=== PATIENT | female | born 1990 | race African-American/Black ===

== ENCOUNTER 2020-11-26 19:20 | Inpatient (IN) | payer SELFPAY ==
[~2020-11-26] VITALS: Ht 167.6 cm; Wt 81.0 kg
[2020-11-26] MEDS ORDERED: HYDROcodone/APAP 5/325MG 1 TAB TABLET PO ONE (22:15)
[2020-11-26 22:29] LABS: BILIRUBIN,URINE SMALL (NEG); CLARITY,URINE CLEAR; COLOR,URINE YELLOW; NITRITE,URINE NEGATIVE (NEG); PROTEIN,URINE NEGATIVE (NEG-TRACE); UROBILINOGEN,URINE 0.2 mg/dL (0.2 mg/dL)
[2020-11-26 22:36] LABS: BACTERIA,URINE FEW /HPF (0-FEW); RBC,URINE >40 /HPF (0-2)
--- NOTE | 2020-11-26 22:47 | RAD ---
EXAMINATION: RIGHT LOWER EXTREMITY - UNILATERAL VENOUS DOPPLER. Technique: Ultrasound evaluation of the right lower extremity was performed from the groin to the upp er calf with peña scale, spectral and color doppler evaluation. Indication: Leg swelling Comparison: None Findings: There is normal venous flow and compressibility of right common femoral vein, femoral vein, popliteal vein, and visualized proximal calf veins. Impression: No evidence for deep vein thrombosis of right lower extremity from the level of the calf veins to the groins. Electronically signed by: Berhane Harris MD (11/26/2020 10:45 PM) DELORIS
--- NOTE | 2020-11-26 23:20 | RAD ---
Examination: 4 views of the right knee HISTORY: History of pain, swelling COMPARISON: None available FINDINGS: The alignment of the knee joint grossly appears unremarkable. No acute fracture or dislocation identi fied IMPRESSION: No acute osseous findings. Electronically signed by: Los Daniel MD (11/26/2020 11:17 PM) [id number]
[2020-11-27] MEDS ORDERED: fentaNYL PF VIAL 100 MCG/2 ML VIAL ONE (00:43)
[2020-11-27] MEDS ORDERED: fentaNYL PF VIAL 100 MCG/2 ML VIAL IVP ONE ×2 (00:45→01:30)
[2020-11-27 00:51] LABS: BASO % 0 % (0-3); EOS # 0.3 x10^3/uL (0.0-0.7); EOS % 3 % (0-3); HEMATOCRIT 33.3 % (36.0-47.0); HEMOGLOBIN 10.6 g/dL (12.0-15.5); LYMPH % 27 % (24-48); MEAN CORPUSCULAR HEMOGLOBIN 28 pg (25-35); MEAN CORPUSCULAR HGB CONC 32 g/dL (31-37); MEAN CORPUSCULAR VOLUME 87 fL (79-100); MONO # 0.9 x10^3/uL (0.0-1.1); MONO % 8 % (0-9); NEUT # 6.9 x10^3/uL (1.8-7.7); NEUT % 62 % (31-73); PLATELET COUNT 379 x10^3/uL (140-400); RED BLOOD COUNT 3.85 x10^6/uL (3.50-5.40); RED CELL DISTRIBUTION WIDTH 14.4 % (11.5-14.5); WHITE BLOOD COUNT 11.1 x10^3/uL (4.0-11.0)
[2020-11-27 01:15] LABS: ALBUMIN 3.4 g/dL (3.4-5.0); CALCIUM 8.4 mg/dL (8.5-10.1); CREATININE 0.8 mg/dL (0.6-1.0); GFR 102.6; TOTAL BILIRUBIN 0.6 mg/dL (0.2-1.0); TOTAL PROTEIN 6.8 g/dL (6.4-8.2)
[2020-11-27] MEDS ORDERED: LIDOCAINE 2%/EPI 1:100,000 20 ML VIAL. INJ ONE (01:30)
[2020-11-27 01:49] LABS: POTASSIUM 2.6 mmol/L (3.5-5.1)
[2020-11-27] MEDS ORDERED: ONDANSETRON PF 4 MG/2 ML VIAL. IV PRN (02:00)
[2020-11-27] MEDS ORDERED: cefTRIAXone IV Push 1 GM VIAL. IVP ONE (02:00)
[2020-11-27] MEDS ORDERED: MORPHINE SULFATE 4 MG/ML INJ. IV PRN (02:00)
[2020-11-27] MEDS ORDERED: HYDROmorphone 2 MG/ML VIAL IVP ONE (02:00)
[2020-11-27] MEDS ORDERED: POTASSIUM CHLORIDE 20 MEQ TABLET.ER. PO ONE (02:00)
--- NOTE | 2020-11-27 02:26 | ED.ADGEN ---
Past Medical History Additional Past Medical Histor: ectopic preg x 2 Past Surgical History: Oophorectomy General Adult EDM: Chief Complaint: LOWER EXT PAIN HPI: HPI: Patient is a 30 year old female coming in for pain and swelling in multiple joints. Patient states that 3 days ago she started having pain and swelling in her right knee, 2 days ago started having pain and swelling in her left knee, and then for 1 day she has had pain and swelling in her left elbow. Denies any fevers or systemic complaints. She denies any injury or twisting to the joints. Says that she has been gradually getting worse. Has noticed right lower extremity edema in her foot and ankle. Denies any past medical history. Denies any personal history of blood clots, states she has a family history of blood clot Review of Systems: Review of Systems: All other systems within normal limits except for as noted in the HPI Current Medications: Current Medications Medications (Trade) Dose Ordered Sig/Danial Start Time Stop Time Status Last Admin Dose Admin Acetaminophen/ Hydrocodone Bitart (Lortab 5/325) 1 tab 1X ONCE 11/26/20 22:15 11/26/20 22:16 DC 11/26/20 23:23 1 TAB Ceftriaxone Sodium (Rocephin) 1 gm 1X ONCE 11/27/20 02:00 11/27/20 02:01 DC 11/27/20 02:08 1 GM Fentanyl Citrate (Fentanyl 2ml Vial) 50 mcg 1X ONCE 11/27/20 01:30 11/27/20 01:31 DC 11/27/20 01:21 50 MCG Hydromorphone HCl (Dilaudid) 0.5 mg 1X ONCE 11/27/20 02:00 11/27/20 02:01 DC 11/27/20 02:09 0.5 MG Lidocaine/ Epinephrine (LIDOCAINE 2%-EPI 1:100,000 multi-dose) 20 ml 1X ONCE 11/27/20 01:30 11/27/20 01:31 DC 11/27/20 01:31 20 ML Morphine Sulfate (Morphine Sulfate) 4 mg PRN Q2HR PRN 11/27/20 02:00 11/28/20 01:59 Ondansetron HCl (Zofran) 4 mg PRN Q8HRS PRN 11/27/20 02:00 11/28/20 01:59 Potassium Chloride (Klor-Con) 40 meq 1X ONCE 11/27/20 02:00 11/27/20 02:01 DC 11/27/20 02:08 40 MEQ Allergies: Allergies: Allergies Coded Allergies Type Severity Reaction Last Updated Verified No Known Drug Allergies 11/26/20 No Physical Exam: PE: Constitutional: Well developed, well nourished, no acute distress, non-toxic appearance. [] HENT: Normocephalic, atraumatic, bilateral external ears normal, nose normal. [] Eyes: PERRLA, conjunctiva normal, no discharge. [] Neck: No rigidity, supple, no stridor. [] Cardiovascular: Regular rate and rhythm, brisk cap refill [] Lungs & Thorax: Non labored symmetric respirations, no tachypnea or respiratory distress [] Abdomen: Soft, nondistended. Skin: Warm, dry, no erythema, no rash. [] Back: Unremarkable Extremities: No deformities, range of motion grossly intact, no lower extremity edema. Right and left knee joint effusions, right lower extremity trace edema, left elbow edema. Range of motion grossly intact but limited by pain [] Neurologic: Alert and oriented X 3, no focal deficits noted. [] Psychologic: Affect normal, judgement normal, mood normal. [] Current Patient Data: Labs: Laboratory Tests Test 11/26/20 21:40 11/26/20 21:56 11/27/20 00:35 Urine Collection Type Unknown Urine Color Yellow Urine Clarity Clear Urine pH 6.0 (<5.0-8.0) Urine Specific [place] 1.025 (1.000-1.030) Urine Protein Negative mg/dL (NEG-TRACE) Urine Glucose (UA) Negative mg/dL (NEG) Urine Ketones (Stick) 40 mg/dL (NEG) Urine Blood Large (NEG) Urine Nitrite Negative (NEG) Urine Bilirubin Small (NEG) Urine Urobilinogen Dipstick 0.2 mg/dL (0.2 mg/dL) Urine Leukocyte Esterase Negative (NEG) Urine RBC >40 /HPF (0-2) Urine WBC 1-4 /HPF (0-4) Urine Squamous Epithelial Cells Mod /LPF Urine Bacteria Few /HPF (0-FEW) Urine Mucus Marked /LPF POC Urine HCG, Qualitative Hcg negative (Negative) White Blood Count 11.1 x10^3/uL (4.0-11.0) H Red Blood Count 3.85 x10^6/uL (3.50-5.40) Hemoglobin 10.6 g/dL (12.0-15.5) L Hematocrit 33.3 % (36.0-47.0) L Mean Corpuscular Volume 87 fL (79-100) Mean Corpuscular Hemoglobin 28 pg (25-35) Mean Corpuscular Hemoglobin Concent 32 g/dL (31-37) Red Cell Distribution Width 14.4 % (11.5-14.5) Platelet Count 379 x10^3/uL (140-400) Neutrophils (%) (Auto) 62 % (31-73) Lymphocytes (%) (Auto) 27 % (24-48) Monocytes (%) (Auto) 8 % (0-9) Eosinophils (%) (Auto) 3 % (0-3) Basophils (%) (Auto) 0 % (0-3) Neutrophils # (Auto) 6.9 x10^3/uL (1.8-7.7) Lymphocytes # (Auto) 3.0 x10^3/uL (1.0-4.8) Monocytes # (Auto) 0.9 x10^3/uL (0.0-1.1) Eosinophils # (Auto) 0.3 x10^3/uL (0.0-0.7) Basophils # (Auto) 0.0 x10^3/uL (0.0-0.2) Sodium Level 143 mmol/L (136-145) Potassium Level 2.6 mmol/L (3.5-5.1) *L Chloride Level 102 mmol/L (98-107) Carbon Dioxide Level 28 mmol/L (21-32) Anion Gap 13 (6-14) Blood Urea Nitrogen 9 mg/dL (7-20) Creatinine 0.8 mg/dL (0.6-1.0) Estimated GFR (Cockcroft-Gault) 102.6 BUN/Creatinine Ratio 11 (6-20) Glucose Level 77 mg/dL (70-99) Calcium Level 8.4 mg/dL (8.5-10.1) L Total Bilirubin 0.6 mg/dL (0.2-1.0) Aspartate Amino Transferase (AST) 26 U/L (15-37) Alanine Aminotransferase (ALT) 29 U/L (14-59) Alkaline Phosphatase 57 U/L (46-116) C-Reactive Protein, Quantitative 64.0 mg/L (0-3.3) H Total Protein 6.8 g/dL (6.4-8.2) Albumin 3.4 g/dL (3.4-5.0) Albumin/Globulin Ratio 1.0 (1.0-1.7) Laboratory Tests 11/27/20 00:35 Laboratory Tests 11/27/20 00:35 Vital Signs: Vital Signs Date Time Temp Pulse Resp B/P (MAP) Pulse Ox O2 Delivery O2 Flow Rate FiO2 11/27/20 02:09 16 98 11/26/20 21:40 97.8 96 132/80 (97) 97.8 11/26/20 21:00 Room Air EKG: EKG: [] Heart Score: C/O Chest Pain: No Risk Factors: Risk Factors: DM, Current or recent (<one month) smoker, HTN, HLP, family history of CAD, obesity. Risk Scores: Score 0 - 3: 2.5% MACE over next 6 weeks - Discharge Home Score 4 - 6: 20.3% MACE over next 6 weeks - Admit for Clinical Observation Score 7 - 10: 72.7% MACE over next 6 weeks - Early Invasive Strategies Radiology/Procedures: Radiology/Procedures: [address] [id number] IMAGING REPORT Signed PATIENT: DEE BENITES ACCOUNT: [id number] : 1990 LOCATION: ER AGE: 30 SEX: F EXAM STATUS: REG ER ORD. PHYSICIAN: LANNY LAINEZ MD REASON: pain, swelling PROCEDURE: KNEE RIGHT 4V Examination: 4 views of the right knee HISTORY: History of pain, swelling COMPARISON: None available FINDINGS: The alignment of the knee joint grossly appears unremarkable. No acute fracture or dislocation identified IMPRESSION: No acute osseous findings. Electronically signed by: Los Daniel MD (11/26/2020 11:17 PM) [id number] DICTATED and SIGNED BY: LOS DANIEL MD DATE: 11/26/20 [id number] [][address] [place] [address] IMAGING REPORT Signed PATIENT: DEE BENITES ACCOUNT: [id number] : 1990 LOCATION: ER AGE: 30 SEX: F EXAM STATUS: REG ER ORD. PHYSICIAN: LANNY LAINEZ MD REASON: right low ext swelling, and pain PROCEDURE: VENOUS LOWER EXTREMITY RIGHT EXAMINATION: RIGHT LOWER EXTREMITY - UNILATERAL VENOUS DOPPLER. Technique: Ultrasound evaluation of the right lower extremity was performed from the groin to the upper calf with peña scale, spectral and color doppler evaluation. Indication: Leg swelling Comparison: None Findings: There is normal venous flow and compressibility of right common femoral vein, femoral vein, popliteal vein, and visualized proximal calf veins. Impression: No evidence for deep vein thrombosis of right lower extremity from the level of the calf veins to the groins. Electronically signed by: Berhane Alves MD (11/26/2020 10:45 PM) [facility] DICTATED and SIGNED BY: BERHANE ALVES MD DATE: 11/26/20 [id number] Impression: Indication: Joint effusion Consent: Consent given by patient. Procedure: The right knee was positioned appropriately and the landmarks were identified. Local anesthesia was 2% lidocaine with epinephrine. The area was then prepped and draped in the usual sterile fashion. A needle was then introduced into the joint space 1 mL of clear yellow synovial fluid. A sterile dressing was then applied to the site. The patient tolerated the procedure well. Complications: none. [] Course & Med Decision Making: Course & Med Decision Making Pertinent Labs and Imaging studies reviewed. (See chart for details) Patient with multiple joint effusions that are painful. Initial temperature 99.1. Concern for infectious etiology although synovial fluid was clear on aspi ration. Also concern for gonococcal infection due to the picked lesions on patient's skin. Limit to follow blood cultures and urine GC chlamydia [] Dragon Disclaimer: Dragyonathan Disclaimer: This electronic medical record was generated, in whole or in part, using a voice recognition dictation system. Departure Departure Impression: Primary Impression: Hypokalemia Additional Impression: Polyarthritis Disposition: ADMITTED INPATIENT Admitting Physician: REBEL Condition: STABLE Referrals: NO PCP (PCP) Problem Qualifiers LANNY LAINEZ MD Nov 27, 2020 02:26
--- NOTE | 2020-11-27 03:15 | NUR ---
The patient, Tiffanie Alvarenga, received to room 656, drowsy, plan of care discussed, call light in hand, patient eating sandwich, soda and chips provided to her per ED staff, denies allergies, 8/10 on the pain scale, pt reports that she does have a package of cigarettes with her, assures this specification writer that she will not smoke in this facility, "I didn't know that I was going to be kept here tonight",
[2020-11-27 04:00] VITALS: BP 111/76
[2020-11-27 07:00] VITALS: BP 109/71
--- NOTE | 2020-11-27 07:40 | PDOC1 ---
History and Physical Date of Admission Date of Admission DATE: 11/27/20 TIME: 07:36 Identification/Chief Complaint Chief Complaint Polyartralgias Source Source: Patient History of Present Illness History of Present Illness Ms Medina is a 30 year old female with no past medical history coming in for pain and swelling in multiple joints and inability to stand on her right leg. 3 days prior to presentation she started having pain and swelling in her right knee with warmth and tenderness, then 2 days after started having the same pain and swelling in her left knee, and finally 1 day after that, the day prior to presentation she has had sudden onset pain and swelling in her left elbow with associated warmth, stiffness and subjective malaise. No fevers or sick contacts and no falls or joint injuries or contact sports. She has not tried anything for the symptoms. She did note her right ankle and calf were becoming swollen and painful. In ED temperature 99.1. ED physician aspirated synovial fluid from right knee, sent for crystal analysis and culture. Labs with WBC 11 With Left Shift, Hb 10.6, Platelets 379 urinalysis with mi croscopic hematuria NA 143, K2.6, BUN 9, CR 0.8, glucose 77, ESR 35, CRP 64, D- dimer elevated at 0.7 She underwent right lower extremity venous Doppler which was negative for DVT and right knee radiograph which was negative for any acute findings. She notes she is sexually active and had a negative screen for GC and chlamydia over a month ago. Hypokalemia Polyarthritis Past Medical History Cardiovascular: No pertinent hx Past Surgical History Past Surgical History ectopic preg x 2 with Oophorectomy Past Surgical History: Other Family History Family History: Other (Clotting disorder) Social History Smoke: No ALCOHOL: occassional Drugs: None Current Medications Current Medications Current Medications Acetaminophen/ Hydrocodone Bitart (Lortab 5/325) 1 tab 1X ONCE PO Last administered on 11/26/20at 23:23; Start 11/26/20 at 22:15; Stop 11/26/20 at 22:16; Status DC Fentanyl Citrate (Fentanyl 2ml Vial) 100 mcg STK-MED ONCE .ROUTE ; Start 11/27/20 at 00:43; Stop 11/27/20 at 00:43; Status DC Fentanyl Citrate (Fentanyl 2ml Vial) 50 mcg 1X ONCE IVP Last administered on 11/27/20at 00:45; Start 11/27/20 at 00:45; Stop 11/27/20 at 00:47; Status DC Fentanyl Citrate (Fentanyl 2ml Vial) 50 mcg 1X ONCE IVP Last administered on 11/27/20at 01:21; Start 11/27/20 at 01:30; Stop 11/27/20 at 01:31; Status DC Lidocaine/ Epinephrine (LIDOCAINE 2%-EPI 1:100,000 multi-dose) 20 ml 1X ONCE INJ Last administered on 11/27/20at 01:31; Start 11/27/20 at 01:30; Stop 11/27/20 at 01:31; Status DC Hydromorphone HCl (Dilaudid) 0.5 mg 1X ONCE IVP Last administered on 11/27/20at 02:09; Start 11/27/20 at 02:00; Stop 11/27/20 at 02:01; Status DC Ceftriaxone Sodium (Rocephin) 1 gm 1X ONCE IVP Last administered on 11/27/20at 02:08; Start 11/27/20 at 02:00; Stop 11/27/20 at 02:01; Status DC Potassium Chloride (Klor-Con) 40 meq 1X ONCE PO Last administered on 11/27/20at 02:08; Start 11/27/20 at 02:00; Stop 11/27/20 at 02:01; Status DC Ondansetron HCl (Zofran) 4 mg PRN Q8HRS PRN IV NAUSEA/VOMITING; Start 11/27/20 at 02:00; Stop 11/28/20 at 01:59 Morphine Sulfate (Morphine Sulfate) 4 mg PRN Q2HR PRN IV PAIN Last administered on 11/27/20at 03:44; Start 11/27/20 at 02:00; Stop 11/28/20 at 01:59 Allergies Allergies: Coded Allergies: No Known Drug Allergies (Unverified , 11/26/20) ROS General: YES: Chills, Fatigue, Malaise; No: Night Sweats, Appetite, Other PSYCHOLOGICAL ROS: No: Anxiety, Behavioral Disorder, Concentration difficultie, Decreased libido, Depression, Disorientation, Hallucinations, Hostility, Irritablity, Memory difficulties, Mood Swings, Obsessive thoughts, Physical abuse, Sexual abuse, Sleep disturbances, Suicidal ideation, Other Eyes: No Blurry vision, No Decreased vision, No Double vision, No Dry eyes, No Excessive tearing, No Eye Pain, No Itchy Eyes, No Loss of vision, No Photophobia, No Scotomata, No Uses contacts, No Uses glasses, No Other HEENT: No: Heacaches, Visual Changes, Hearing change, Nasal congestion, Nasal discharge, Oral lesions, Sinus pain, Sore Throat, Epistaxis, Sneezing, Snoring, Tinnitus, Vertigo, Vocal changes, Other ALLERGY AND IMMUNOLOGY: No: Hives, Insect Bite Sensitivity, Itchy/Watery Eyes, Nasal Congestion, Post Nasal Drip, Seasonal Allergies, Other Hematological and Lymphatic: No: Bleeding Problems, Blood Clots, Blood Transfusions, Brusing, Night Sweats, Pallor, Swollen Lymph Nodes, Other ENDOCRINE: No: Breast Changes, Galactorrhea, Hair Pattern Changes, Hot Flashes, Malaise/lethargy, Mood Swings, Palpitations, Polydipsia/polyuria, Skin Changes, Temperature Intolerance, Unexpected Weight Changes, Other Breast: No New/Changing Breast Lumps, No Nipple changes, No Nipple discharge, No Other Respiratory: No: Cough, Hemoptysis, Orthopnea, Pleuritic Pain, Shortness of breath, SOB with excertion, Sputum Changes, Stridor, Tachypnea, Wheezing, Other Cardiovascular: No Chest Pain, No Palpitations, No Orthopnea, No Paroxysmal Noc. Dyspnea, No Edema, No Lt Headedness, No Other Gastrointestinal: No Nausea, No Vomiting, No Abdominal Pain, No Diarrhea, No Constipation, No Melena, No Hematochezia, No Other Genitourinary: No Dysuria, No Frequency, No Incontinence, No Hematuria, No Retention, No Discharge, No Urgency, No Pain, No Flank Pain, No Other, No , No , No , No , No , No , No Musculoskeletal: Yes Gait Disturbance, Yes Joint Pain, Yes Joint Stiffness, Yes Joint Swelling, Yes Muscle Pain Neurological: Yes Gait Disturbance; No Behavorial Changes, No Bowel/Bladder ControlChng, No Confusion, No Dizziness, No Headaches, No Impaired Coord/balance, No Memory Loss, No Numbness/Tingling, No Seizures, No Speech Problems, No Tremors, No Visual Changes, No Weakness, No Other Skin: Yes Rash; No Dry Skin, No Eczema, No Hair Changes, No Lumps, No Mole Changes, No Mottling, No Nail Changes, No Pruritus, No Skin Lesion Changes, No Other, No Acne Physical Exam General: Alert, Oriented X3, Cooperative, moderate distress HEENT: Atraumatic, PERRLA, EOMI, Mucous membr. moist/pink, Other (Glasses in place) Lungs: Clear to auscultation, Normal air movement Heart: S1S2, RRR, no thrills, no rubs, no gallops, no murmurs Abdomen: Normal bowel sounds, Soft, No tenderness, No hepatosplenomegaly, No masses Rectal Exam: not examined Extremities: No clubbing, No cyanosis, No edema, Normal pulses, Other (Tenderness bilateral knees with effusion R>L and left elbow with large swelling, tendnerness) Skin: No breakdown, No significant lesion, Other (Warm and swollen right knee and left elbow) Neuro: Normal speech, Strength at 5/5 X4 ext, Normal tone, Sensation intact, Cranial nerves 3-12 NL, Reflexes 2+ Psych/Mental Status: Mental status NL, Mood NL Vitals Vitals Vital Signs Date Time Temp Pulse Resp B/P (MAP) Pulse Ox O2 Delivery O2 Flow Rate FiO2 11/27/20 04:00 97.8 70 18 111/76 (88) 100 97.8 11/27/20 03:44 Room Air Labs Labs Laboratory Tests Test 11/26/20 21:40 11/26/20 21:56 11/27/20 00:10 11/27/20 00:35 Urine Collection Type Unknown Urine Color Yellow Urine Clarity Clear Urine pH 6.0 (<5.0-8.0) Urine Specific [place] 1.025 (1.000-1.030) Urine Protein Negative mg/dL (NEG-TRACE) Urine Glucose (UA) Negative mg/dL (NEG) Urine Ketones (Stick) 40 mg/dL (NEG) Urine Blood Large (NEG) Urine Nitrite Negative (NEG) Urine Bilirubin Small (NEG) Urine Urobilinogen Dipstick 0.2 mg/dL (0.2 mg/dL) Urine Leukocyte Esterase Negative (NEG) Urine RBC >40 /HPF (0-2) Urine WBC 1-4 /HPF (0-4) Urine Squamous Epithelial Cells Mod /LPF Urine Bacteria Few /HPF (0-FEW) Urine Mucus Marked /LPF Bedside Urine HCG, Qualitative Hcg negative (Negative) Erythrocyte Sedimentation Rate 35 (0-25) D-Dimer (Caitie) 0.70 ug/mlFEU (0.00-0.50) White Blood Count 11.1 x10^3/uL (4.0-11.0) Red Blood Count 3.85 x10^6/uL (3.50-5.40) Hemoglobin 10.6 g/dL (12.0-15.5) Hematocrit 33.3 % (36.0-47.0) Mean Corpuscular Volume 87 fL (79-100) Mean Corpuscular Hemoglobin 28 pg (25-35) Mean Corpuscular Hemoglobin Concent 32 g/dL (31-37) Red Cell Distribution Width 14.4 % (11.5-14.5) Platelet Count 379 x10^3/uL (140-400) Neutrophils (%) (Auto) 62 % (31-73) Lymphocytes (%) (Auto) 27 % (24-48) Monocytes (%) (Auto) 8 % (0-9) Eosinophils (%) (Auto) 3 % (0-3) Basophils (%) (Auto) 0 % (0-3) Neutrophils # (Auto) 6.9 x10^3/uL (1.8-7.7) Lymphocytes # (Auto) 3.0 x10^3/uL (1.0-4.8) Monocytes # (Auto) 0.9 x10^3/uL (0.0-1.1) Eosinophils # (Auto) 0.3 x10^3/uL (0.0-0.7) Basophils # (Auto) 0.0 x10^3/uL (0.0-0.2) Sodium Level 143 mmol/L (136-145) Potassium Level 2.6 mmol/L (3.5-5.1) Chloride Level 102 mmol/L (98-107) Carbon Dioxide Level 28 mmol/L (21-32) Anion Gap 13 (6-14) Blood Urea Nitrogen 9 mg/dL (7-20) Creatinine 0.8 mg/dL (0.6-1.0) Estimated GFR (Cockcroft-Gault) 102.6 BUN/Creatinine Ratio 11 (6-20) Glucose Level 77 mg/dL (70-99) Calcium Level 8.4 mg/dL (8.5-10.1) Total Bilirubin 0.6 mg/dL (0.2-1.0) Aspartate Amino Transf (AST/SGOT) 26 U/L (15-37) Alanine Aminotransferase (ALT/SGPT) 29 U/L (14-59) Alkaline Phosphatase 57 U/L (46-116) C-Reactive Protein, Quantitative 64.0 mg/L (0-3.3) Total Protein 6.8 g/dL (6.4-8.2) Albumin 3.4 g/dL (3.4-5.0) Albumin/Globulin Ratio 1.0 (1.0-1.7) Laboratory Tests Test 11/26/20 21:40 11/26/20 21:56 11/27/20 00:10 11/27/20 00:35 Urine Collection Type Unknown Urine Color Yellow Urine Clarity Clear Urine pH 6.0 (<5.0-8.0) Urine Specific [place] 1.025 (1.000-1.030) Urine Protein Negative mg/dL (NEG-TRACE) Urine Glucose (UA) Negative mg/dL (NEG) Urine Ketones (Stick) 40 mg/dL (NEG) Urine Blood Large (NEG) Urine Nitrite Negative (NEG) Urine Bilirubin Small (NEG) Urine Urobilinogen Dipstick 0.2 mg/dL (0.2 mg/dL) Urine Leukocyte Esterase Negative (NEG) Urine RBC >40 /HPF (0-2) Urine WBC 1-4 /HPF (0-4) Urine Squamous Epithelial Cells Mod /LPF Urine Bacteria Few /HPF (0-FEW) Urine Mucus Marked /LPF Bedside Urine HCG, Qualitative Hcg negative (Negative) Erythrocyte Sedimentation Rate 35 (0-25) D-Dimer (Caitie) 0.70 ug/mlFEU (0.00-0.50) White Blood Count 11.1 x10^3/uL (4.0-11.0) Red Blood Count 3.85 x10^6/uL (3.50-5.40) Hemoglobin 10.6 g/dL (12.0-15.5) Hematocrit 33.3 % (36.0-47.0) Mean Corpuscular Volume 87 fL (79-100) Mean Corpuscular Hemoglobin 28 pg (25-35) Mean Corpuscular Hemoglobin Concent 32 g/dL (31-37) Red Cell Distribution Width 14.4 % (11.5-14.5) Platelet Count 379 x10^3/uL (140-400) Neutrophils (%) (Auto) 62 % (31-73) Lymphocytes (%) (Auto) 27 % (24-48) Monocytes (%) (Auto) 8 % (0-9) Eosinophils (%) (Auto) 3 % (0-3) Basophils (%) (Auto) 0 % (0-3) Neutrophils # (Auto) 6.9 x10^3/uL (1.8-7.7) Lymphocytes # (Auto) 3.0 x10^3/uL (1.0-4.8) Monocytes # (Auto) 0.9 x10^3/uL (0.0-1.1) Eosinophils # (Auto) 0.3 x10^3/uL (0.0-0.7) Basophils # (Auto) 0.0 x10^3/uL (0.0-0.2) Sodium Level 143 mmol/L (136-145) Potassium Level 2.6 mmol/L (3.5-5.1) Chloride Level 102 mmol/L (98-107) Carbon Dioxide Level 28 mmol/L (21-32) Anion Gap 13 (6-14) Blood Urea Nitrogen 9 mg/dL (7-20) Creatinine 0.8 mg/dL (0.6-1.0) Estimated GFR (Cockcroft-Gault) 102.6 BUN/Creatinine Ratio 11 (6-20) Glucose Level 77 mg/dL (70-99) Calcium Level 8.4 mg/dL (8.5-10.1) Total Bilirubin 0.6 mg/dL (0.2-1.0) Aspartate Amino Transf (AST/SGOT) 26 U/L (15-37) Alanine Aminotransferase (ALT/SGPT) 29 U/L (14-59) Alkaline Phosphatase 57 U/L (46-116) C-Reactive Protein, Quantitative 64.0 mg/L (0-3.3) Total Protein 6.8 g/dL (6.4-8.2) Albumin 3.4 g/dL (3.4-5.0) Albumin/Globulin Ratio 1.0 (1.0-1.7) Images Images KNEE RIGHT 4V: The alignment of the knee joint grossly appears unremarkable. No acute fracture or dislocation identified IMPRESSION: No acute osseous findings. RIGHT LOWER EXTREMITY - UNILATERAL VENOUS DOPPLER: Findings: There is normal venous flow and compressibility of right common femoral vein, femoral vein, popliteal vein, and visualized proximal calf veins. Impression: No evidence for deep vein thrombosis of right lower extremity from the level of the calf veins to the groins. VTE Prophylaxis Ordered VTE Prophylaxis Devices: No VTE Pharmacological Prophylaxi: Yes Assessment/Plan Assessment/Plan A/P: Right knee pain and swelling - inflammatory vs septic arthritis, will await joint fluid analysis, given the distribution will treat for cellulitis/gonococcal arthritis Left elbow pain and swelling - will obtain radiograph. NSAIDs, treat as above Migratory polyarthralgias - with elevated inflammatory markers more likely crystal or gonococcal arthropathy, will screen for rheumatoid and lupus given hematuria as well. Anemia - possibly of chronic disease, will check iron studies. Unable to walk - pain control, anti-inflammatory meds for right knee, will need inpatient care until able to ambulate and will get assistance device Hypokalemia - possibly nutritional, will replace, check mag level FEN - General diet PPX - lovenox FULL CODE Dispo - inpatient Justifications for Admission Other Justification LENNY ARTEAGA MD Nov 27, 2020 07:40
[2020-11-27] MEDS: DOXYCYCLINE HYCLATE 100 MG TABLET PO SCH ×2 (10:28→20:59)
[2020-11-27] MEDS: KETOROLAC 30 MG/ML VIAL. IVP PRN ×2 (10:28→17:49)
[2020-11-27] MEDS ORDERED: ACETAMINOPHEN 325 MG TABLET. PO PRN (10:30)
[2020-11-27 11:00] VITALS: BP 101/54
[2020-11-27] MEDS: traMADol 50 MG TABLET PO PRN (12:51)
[2020-11-27 15:00] VITALS: BP 83/56
[2020-11-27 19:00] VITALS: BP 112/66
[2020-11-27] MEDS: ENOXAPARIN 40 MG/0.4 ML SYRINGE. SQ SCH (20:59)
[2020-11-27] MEDS: LACTOBACILLUS RHAMNOSUS GG 1 CAPSULE. PO SCH (20:59)
[2020-11-27] MEDS: MORPHINE SULFATE 2 MG/ML INJ. IVP PRN (21:00)
[2020-11-27 23:04] VITALS: BP 106/64
[2020-11-28 03:08] VITALS: BP 104/63
[2020-11-28] MEDS: KETOROLAC 30 MG/ML VIAL. IVP PRN ×3 (03:09→20:53)
[2020-11-28] MEDS: traMADol 50 MG TABLET PO PRN ×3 (03:09→18:25)
[2020-11-28 06:46] LABS: CALCIUM 7.9 mg/dL (8.5-10.1); CREATININE 0.7 mg/dL (0.6-1.0); GFR 119.7; MAGNESIUM 2.1 mg/dL (1.8-2.4)
[2020-11-28 06:47] LABS: BASO # 0.1 x10^3/uL (0.0-0.2); BASO % 1 % (0-3); EOS # 0.2 x10^3/uL (0.0-0.7); EOS % 2 % (0-3); HEMATOCRIT 31.9 % (36.0-47.0); HEMOGLOBIN 10.3 g/dL (12.0-15.5); LYMPH % 17 % (24-48); MEAN CORPUSCULAR HEMOGLOBIN 28 pg (25-35); MEAN CORPUSCULAR HGB CONC 32 g/dL (31-37); MEAN CORPUSCULAR VOLUME 87 fL (79-100); MONO # 0.7 x10^3/uL (0.0-1.1); MONO % 6 % (0-9); NEUT # 8.8 x10^3/uL (1.8-7.7); NEUT % 74 % (31-73); PLATELET COUNT 384 x10^3/uL (140-400); RED BLOOD COUNT 3.67 x10^6/uL (3.50-5.40); RED CELL DISTRIBUTION WIDTH 14.8 % (11.5-14.5); WHITE BLOOD COUNT 11.9 x10^3/uL (4.0-11.0)
[2020-11-28 06:54] LABS: POTASSIUM 4.1 mmol/L (3.5-5.1)
[2020-11-28 07:00] VITALS: BP 114/72
[2020-11-28] MEDS: LACTOBACILLUS RHAMNOSUS GG 1 CAPSULE. PO SCH ×2 (09:11→20:57)
[2020-11-28] MEDS: DOXYCYCLINE HYCLATE 100 MG TABLET PO SCH ×2 (09:11→20:57)
[2020-11-28] MEDS: MORPHINE SULFATE 2 MG/ML INJ. IVP PRN ×2 (09:15→22:29)
--- NOTE | 2020-11-28 09:27 | RAD ---
Exam Date: 11/27/2020 1:29 PM XR ELBOW COMPLETE_LEFT 3+VIEWS Indication: Reason: Indurated, concern for possible abscess / Spl. Instructions: / History: . FINDINGS/ IMPRESSION: No acute fracture or dislocation. Alignment and joint spaces are maintained. There is diffuse subcu taneous edema. No appreciable elbow joint effusion. Electronically signed by: Joseph Burgos MD (11/28/2020 9:25 AM) SEAN
--- NOTE | 2020-11-28 09:56 | PDOC ---
[employer] PROGRESS NOTE Date of Service DOS: DATE: 11/28/20 TIME: 09:34 Chief Complaint Chief Complaint A/P: Right knee pain and swelling - inflammatory vs septic arthritis, will await joint fluid analysis, given the distribution will treat for cellulitis/gonococcal arthritis Left elbow pain and swelling - will obtain radiograph. NSAIDs, treat as above Migratory polyarthralgias - with elevated inflammatory markers more likely crystal or gonococcal arthropathy, will screen for rheumatoid and lupus given hematuria as well. Anemia - possibly of chronic disease, will check iron studies. Unable to walk - pain control, anti-inflammatory meds for right knee, will need inpatient care until able to ambulate and will get assistance device Hypokalemia - possibly nutritional, will replace, check mag level FEN - General diet PPX - lovenox FULL CODE Dispo - inpatient History of Present Illness History of Present Illness Ms Medina is a 30 year old female with no past medical history coming in for pain and swelling in multiple joints and inability to stand on her right leg. 3 days prior to presentation she started having pain and swelling in her right knee with warmth and tenderness, then 2 days after started having the same pain and swelling in her left knee, and finally 1 day after that, the day prior to presentation she has had sudden onset pain and swelling in her left elbow with associated warmth, stiffness and subjective malaise. No fevers or sick contacts and no falls or joint injuries or contact sports. She has not tried anything for the symptoms. She did note her right ankle and calf were becoming swollen and painful. In ED temperature 99.1. ED physician aspirated synovial fluid from right knee, sent for crystal analysis and culture. Labs with WBC 11 With Left Shift, Hb 10.6, Platelets 379 urinalysis with microscopic hematuria NA 143, K2.6, BUN 9, CR 0.8, glucose 77, ESR 35, CRP 64, D-dimer elevated at 0.7 She underwent right lower extremity venous Doppler which was negative for DVT and right knee radiograph which was negative for any acute findings. She notes she is sexually active and had a negative screen for GC and chlamydia over a month ago. Afebrile overnight. Only after IV morphine is she able to bear weight on her right leg. Left elbow x-ray reviewed no acute abnormalities other than subcutaneous swelling. Right knee and left knee less indurated today now she has some left hip pain and some left hamstring muscle pain. Vitals/I&O Vitals/I&O: Vital Signs Date Time Temp Pulse Resp B/P (MAP) Pulse Ox O2 Delivery O2 Flow Rate FiO2 11/28/20 09:15 17 Room Air 11/28/20 07:00 98.8 60 114/72 (86) 98 98.8 Physical Exam General: Alert, Oriented X3, Cooperative, moderate distress Abdomen: Normal bowel sounds, Soft, No tenderness, No hepatosplenomegaly, No masses Extremities: No clubbing, No cyanosis, No edema, Normal pulses, Other (Tenderness bilateral knees with effusion R>L and left elbow with large swelling, tendnerness) Skin: No breakdown, No significant lesion, Other (Warm and swollen right knee and left elbow) Labs Labs: Laboratory Tests Test 11/28/20 06:00 White Blood Count 11.9 x10^3/uL (4.0-11.0) Red Blood Count 3.67 x10^6/uL (3.50-5.40) Hemoglobin 10.3 g/dL (12.0-15.5) Hematocrit 31.9 % (36.0-47.0) Mean Corpuscular Volume 87 fL (79-100) Mean Corpuscular Hemoglobin 28 pg (25-35) Mean Corpuscular Hemoglobin Concent 32 g/dL (31-37) Red Cell Distribution Width 14.8 % (11.5-14.5) Platelet Count 384 x10^3/uL (140-400) Neutrophils (%) (Auto) 74 % (31-73) Lymphocytes (%) (Auto) 17 % (24-48) Monocytes (%) (Auto) 6 % (0-9) Eosinophils (%) (Auto) 2 % (0-3) Basophils (%) (Auto) 1 % (0-3) Neutrophils # (Auto) 8.8 x10^3/uL (1.8-7.7) Lymphocytes # (Auto) 2.0 x10^3/uL (1.0-4.8) Monocytes # (Auto) 0.7 x10^3/uL (0.0-1.1) Eosinophils # (Auto) 0.2 x10^3/uL (0.0-0.7) Basophils # (Auto) 0.1 x10^3/uL (0.0-0.2) Sodium Level 141 mmol/L (136-145) Potassium Level 4.1 mmol/L (3.5-5.1) Chloride Level 106 mmol/L (98-107) Carbon Dioxide Level 32 mmol/L (21-32) Anion Gap 3 (6-14) Blood Urea Nitrogen 13 mg/dL (7-20) Creatinine 0.7 mg/dL (0.6-1.0) Estimated GFR (Cockcroft-Gault) 119.7 Glucose Level 95 mg/dL (70-99) Calcium Level 7.9 mg/dL (8.5-10.1) Magnesium Level 2.1 mg/dL (1.8-2.4) Comment Review of Relevant I have reviewed the following items sanjuanita (where applicable) has been applied. Medications: Current Medications Medications (Trade) Dose Ordered Sig/Danial Route PRN Reason Start Time Stop Time Status Last Admin Dose Admin Doxycycline Hyclate (Vibra-Tab) 100 mg BID PO 11/27/20 11:00 11/28/20 09:11 Ketorolac Tromethamine (Toradol 30mg Vial) 30 mg PRN Q6HRS PRN IVP INFLAMMATION 11/27/20 10:30 12/02/20 10:29 11/28/20 03:09 Morphine Sulfate (Morphine Sulfate) 2 mg PRN Q4HRS PRN IVP PAIN 11/27/20 10:30 11/28/20 09:15 Tramadol HCl (Ultram) 50 mg PRN Q6HRS PRN PO MODERATE-SEVERE PAIN 11/27/20 10:30 11/28/20 09:11 Lactobacillus Rhamnosus (Culturelle) 1 cap BID PO 11/27/20 21:00 11/28/20 09:11 Enoxaparin Sodium (Lovenox 40mg Syringe) 40 mg Q24H SQ 11/27/20 21:00 11/27/20 20:59 Justifications for Admission Other Justification LENNY ARTEAGA MD Nov 28, 2020 09:56
[2020-11-28 11:00] VITALS: BP 97/57
[2020-11-28] MEDS: cefTRIAXone IV Push 2 GM VIAL. IVP SCH (14:57)
[2020-11-28 15:00] VITALS: BP 107/62
[2020-11-28 19:00] VITALS: BP 110/65
[2020-11-28] MEDS: ENOXAPARIN 40 MG/0.4 ML SYRINGE. SQ SCH (20:57)
[2020-11-28 23:05] VITALS: BP 109/59
[2020-11-29 03:11] VITALS: BP 120/78
[2020-11-29] MEDS: MORPHINE SULFATE 2 MG/ML INJ. IVP PRN (03:38)
[2020-11-29 04:46] LABS: BASO % 0 % (0-3); EOS # 0.2 x10^3/uL (0.0-0.7); EOS % 3 % (0-3); HEMATOCRIT 30.6 % (36.0-47.0); HEMOGLOBIN 9.8 g/dL (12.0-15.5); LYMPH # 3.2 x10^3/uL (1.0-4.8); LYMPH % 32 % (24-48); MEAN CORPUSCULAR HEMOGLOBIN 28 pg (25-35); MEAN CORPUSCULAR HGB CONC 32 g/dL (31-37); MEAN CORPUSCULAR VOLUME 88 fL (79-100); MONO # 0.7 x10^3/uL (0.0-1.1); MONO % 7 % (0-9); NEUT # 5.9 x10^3/uL (1.8-7.7); NEUT % 59 % (31-73); PLATELET COUNT 398 x10^3/uL (140-400); RED BLOOD COUNT 3.49 x10^6/uL (3.50-5.40); RED CELL DISTRIBUTION WIDTH 14.6 % (11.5-14.5); WHITE BLOOD COUNT 10.1 x10^3/uL (4.0-11.0)
[2020-11-29 05:15] LABS: ALBUMIN 2.4 g/dL (3.4-5.0); ALBUMIN/GLOBULIN RATIO 0.7 (1.0-1.7); CALCIUM 8.1 mg/dL (8.5-10.1); CREATININE 0.6 mg/dL (0.6-1.0); TOTAL BILIRUBIN 0.2 mg/dL (0.2-1.0); TOTAL PROTEIN 5.9 g/dL (6.4-8.2)
[2020-11-29 07:00] VITALS: BP 121/71
[2020-11-29] MEDS: LACTOBACILLUS RHAMNOSUS GG 1 CAPSULE. PO SCH (08:14)
[2020-11-29] MEDS: DOXYCYCLINE HYCLATE 100 MG TABLET PO SCH (08:14)
[2020-11-29] MEDS: KETOROLAC 30 MG/ML VIAL. IVP PRN (08:15)
[2020-11-29] MEDS ORDERED: oxyCODONE/APAP 5/325 1 TAB TABLET PO ONE (09:45)
[2020-11-29 11:00] VITALS: BP 105/60
[2020-11-29] MEDS: cefTRIAXone IV Push 2 GM VIAL. IVP SCH (11:00)
[2020-11-29] MEDS ORDERED: OXYC1TAB15 PO (11:46)
--- NOTE | 2020-11-29 11:49 | DISCH ---
DISCHARGE INSTRUCTIONS Condition on Discharge Condition on Discharge: Stable Activity After Discharge Activity Instructions for Disc: Resume previous activity Lifting Instructions after Dis: No pulling or pushing Exercise Instruction after Dis: Walk 15 min, 3 x per day Driving Instructions after Dis: Do not drive today Diet after Discharge Diet after Discharge: Cardiac Follow-Up Follow up with: PCP within 2 weeks of discharge KIMBERLY OLEARY MD Nov 29, 2020 11:49
--- NOTE | 2020-11-29 12:55 | NUR ---
SW following. Discussed with RN, pt from home, room air, regular diet, independent. Med Assist following for self pay status. Discharge order for home with self care. SW will continue to follow.
[2020-11-29 15:00] VITALS: BP 117/61
--- NOTE | 2020-11-29 16:23 | NUR ---
Discharge Note: AMINATA BENITES [facility] Discharge instructions and discharge home medications reviewed with the patient and a copy given. All questions have been answered and understanding verbalized. The following instructions and handouts were given: Percocet TID as needed for pain Ibuprofen prn Watch out for fever, severe weakness, severe pain: seek emergent care. Follow up with PCP in 2 weeks. Discontinued lines and drains: peripheral IV intact, patient tolerated removal, bno complications noted Patient discharged to home with self care at 1520.
[2020-11-30 19:22] LABS: ANA INTERP Negative (.)
== END 2020-11-29 15:20 | disposition home or self-care (01) | DRG 549 ==
LOC: ER 19:20 → 6 SOUTH 11-27 02:37
PROVIDERS: ADMIT Family Medicine; ATTEND Family Medicine
PROC: 0S9C3ZX Drainage of Right Knee Joint, Percutaneous Approach, Diagnostic (ICD-10-PCS; principal; 2020-11-27)
DX: M00.9 Pyogenic arthritis, unspecified (principal); L03.115 Cellulitis of right lower limb; A54.42 Gonococcal arthritis; E87.6 Hypokalemia; M19.022 Primary osteoarthritis, left elbow; R31.29 Other microscopic hematuria; Z83.2 Family history of diseases of the blood and blood-forming organs and certain disorders involving the immune mechanism; D63.8 Anemia in other chronic diseases classified elsewhere
CPT/HCPCS: 36415; 73080; 73564; 80048; 80053; 81001; 81025; 83735; 84550; 85025; 85379; 85651; 86038; 86140; 86431; 87040; 87070; 87491; 87591; 93971; 96374; 96375; 96376; J0696; J1170; J1650; J1885; J2270; J3010; J3490; 99285-25; G0378

== ENCOUNTER 2021-03-01 20:00 | Emergency (ER) | payer SELFPAY ==
[~2021-03-01] VITALS: Ht 167.6 cm; Wt 83.9 kg
[~2021-03-01 20:00] MED LIST: OXYC1TAB15 PO
[2021-03-02 03:45] VITALS: BP 119/80
[2021-03-02] MEDS ORDERED: AMOX500C PO (04:38)
--- NOTE | 2021-03-02 04:38 | ED.ADGEN ---
Past Medical History Additional Past Medical Histor: ectopic preg x 2 Past Surgical History: Oophorectomy, Tubal ligation Smoking Status: Current Every Day Smoker General Adult EDM: Chief Complaint: EARACHE/EAR PAIN HPI: HPI: Patient is a 30 year old female coming in for 4 days of a sore throat and left ear pain. Patient states the pain is rating to her jaw. Denies any dental injury. Has had a fever at home but not taking medications. Review of Systems: Review of Systems: All other systems within normal limits except for as noted in the HPI Allergies: Allergies: Allergies Coded Allergies Type Severity Reaction Last Updated Verified No Known Drug Allergies 11/26/20 No Physical Exam: PE: Constitutional: Well developed, well nourished, no acute distress, non-toxic appearance. [] HENT: Normocephalic, atraumatic, bilateral external ears normal, bilateral erythema of canals with normal TMs, nose normal. [Bilateral tonsillar and posterior pharynx erythema with exudates. No edema or asymmetry of tonsils, no uvular shift.] Eyes: PERRLA, conjunctiva normal, no discharge. [] Neck: No rigidity, supple, no stridor. Bilateral cervical lymphadenopathy [] Cardiovascular: Regular rate and rhythm, brisk cap refill [] Lungs & Thorax: Non labored symmetric respirations, no tachypnea or respiratory distress [] Abdomen: Soft, nondistended. Skin: Warm, dry, no erythema, no rash. [] Back: Unremarkable Extremities: No deformities, range of motion grossly intact, no lower extremity edema [] Neurologic: Alert and oriented X 3, no focal deficits noted. [] Psychologic: Affect normal, judgement normal, mood normal. [] Current Patient Data: Labs: Laboratory Tests Test 03/01/21 23:09 POC Urine HCG, Qualitative Hcg negative (Negative) Vital Signs: Vital Signs Date Time Temp Pulse Resp B/P (MAP) Pulse Ox O2 Delivery O2 Flow Rate FiO2 03/02/21 03:45 88 18 119/80 (93) 100 03/01/21 20:50 99.1 99.1 EKG: EKG: [] Heart Score: C/O Chest Pain: No Risk Factors: Risk Factors: DM, Current or recent (<one month) smoker, HTN, HLP, family history of CAD, obesity. Risk Scores: Score 0 - 3: 2.5% MACE over next 6 weeks - Discharge Home Score 4 - 6: 20.3% MACE over next 6 weeks - Admit for Clinical Observation Score 7 - 10: 72.7% MACE over next 6 weeks - Early Invasive Strategies Radiology/Procedures: Radiology/Procedures: [] Course & Med Decision Making: Course & Med Decision Making Centor criteria 4. Discussed empiric treatment patient. Agrees to plan Dragon Disclaimer: Brett Disclaimer: This electronic medical record was generated, in whole or in part, using a voice recognition dictation system. Departure Departure Impression: Primary Impression: Pharyngitis Disposition: HOME / SELF CARE / HOMELESS Condition: STABLE Referrals: NO PCP (PCP) Patient Instructions: Viral and Bacterial Pharyngitis Scripts Amoxicillin (AMOXICILLIN) 500 Mg Capsule 1 CAP PO Q8HRS for infection for 10 Days, #30 CAP Prov: LANNY LAINEZ MD 03/02/21 LANNY LAINEZ MD Mar 02, 2021 04:38
[2021-03-02] MEDS ORDERED: DEXAMETHASONE SOD PHOS 20 MG/5 ML VIAL. PO ONE (05:00)
[2021-03-02] MEDS ORDERED: AMOXICILLIN 250 MG CAPSULE. PO ONE (05:00)
[2021-03-02] MEDS ORDERED: ACETAMINOPHEN 500 MG TABLET PO ONE (05:00)
== END 2021-03-02 05:22 | disposition home or self-care (01) ==
LOC: ER 20:00
DX: J02.9 Acute pharyngitis, unspecified (principal); H92.02 Otalgia, left ear; R68.84 Jaw pain; F17.200 Nicotine dependence, unspecified, uncomplicated
CPT/HCPCS: 81025; 99284; J1100

== ENCOUNTER 2021-05-04 11:10 | Emergency (ER) | payer SELFPAY ==
[~2021-05-04] VITALS: Ht 167.6 cm; Wt 81.8 kg
[~2021-05-04 11:10] MED LIST changes: +AMOX500C PO
--- NOTE | 2021-05-04 12:11 | RAD ---
EXAMINATION: US DPLX VENOUS EXTREMITY LOWER LT (LOWER EXTREMITY VENOUS ULTRASOUND) CLINICAL HISTORY: Left lower extremity swelling, pain TECHNIQUE: Sonographic grayscale images obtained of the left lower extremity deep venous system with color flow Doppler, compression, and augmentation techniques as indicated. Images obtained and store d in a permanent archive. COMPARISON: None FINDINGS: No evidence of absent flow or incompressibility within the common femoral vein, femoral vein, or popl iteal vein. Visualized calf veins appear patent on limited evaluation. IMPRESSION: No evidence of left lower extremity DVT. Electronically signed by: Jules Monson DO (05/04/2021 12:09 PM) [facility]
[2021-05-04 12:21] LABS: BASO % 0 % (0-3); EOS # 0.3 x10^3/uL (0.0-0.7); EOS % 3 % (0-3); HEMATOCRIT 38.9 % (36.0-47.0); HEMOGLOBIN 12.6 g/dL (12.0-15.5); LYMPH # 1.2 x10^3/uL (1.0-4.8); LYMPH % 13 % (24-48); MEAN CORPUSCULAR HEMOGLOBIN 27 pg (25-35); MEAN CORPUSCULAR HGB CONC 33 g/dL (31-37); MEAN CORPUSCULAR VOLUME 84 fL (79-100); MONO # 0.5 x10^3/uL (0.0-1.1); MONO % 5 % (0-9); NEUT # 7.3 x10^3/uL (1.8-7.7); NEUT % 79 % (31-73); PLATELET COUNT 324 x10^3/uL (140-400); RED BLOOD COUNT 4.63 x10^6/uL (3.50-5.40); RED CELL DISTRIBUTION WIDTH 14.2 % (11.5-14.5); WHITE BLOOD COUNT 9.3 x10^3/uL (4.0-11.0)
[2021-05-04 12:39] LABS: CALCIUM 8.6 mg/dL (8.5-10.1); CREATININE 0.7 mg/dL (0.6-1.0); GFR 119.7
[2021-05-04 12:39] LABS: BARBITURATES NEG (NEG); BENZODIAZEPINES NEG (NEG); CANNABINOIDS POS (NEG); COCAINE POS (NEG); METHADONE NEG (NEG); OPIATES NEG (NEG); PHENCYCLIDINE NEG (NEG)
[2021-05-04 12:40] LABS: AMPHETAMINE/METHAMPHETAMINE POS (NEG)
[2021-05-04 12:43] LABS: ALBUMIN 3.2 g/dL (3.4-5.0); ALBUMIN/GLOBULIN RATIO 0.8 (1.0-1.7); TOTAL BILIRUBIN 0.3 mg/dL (0.2-1.0); TOTAL PROTEIN 7.4 g/dL (6.4-8.2)
--- NOTE | 2021-05-04 12:51 | RAD ---
XR KNEE _4 VIEWS WITH PATELLA_LT DATE: 05/04/2021 12:05 PM INDICATION: Reason: swelling, pain / Spl. Instructions: / History: COMPARISON: None. FINDINGS: Bones: There is no evidence of acute fracture or dislocation. Joints: The joint spaces are normal. There is no joint effusion. Miscellaneous: None. IMPRESSION: No evidence of acute fracture or malalignment. Electronically signed by: Harley Evans DO (05/04/2021 12:49 PM) [id number]
[2021-05-04] MEDS ORDERED: KETOROLAC 60 MG/2 ML VIAL. IM ONE (13:30)
[2021-05-04 13:51] VITALS: BP 119/71
[2021-05-04] MEDS ORDERED: CEPH500C PO (14:01)
[2021-05-04] MEDS ORDERED: IBUP-1007 PO (14:02)
--- NOTE | 2021-05-04 14:03 | PHYS DOC ---
Past Medical History Additional Past Medical Histor: ectopic preg x 2 Past Surgical History: Other Additional Past Surgical Histo: SALPINGECTOMY Smoking Status: Current Every Day Smoker Alcohol Use: None General Adult EDM: Chief Complaint: LOWER EXT PAIN HPI: HPI: Patient is a 30 year old female who presents with chronic knee pain and states that she does a lot of walking. She states the last time it was the right knee but this time it is the left knee. Patient states she is having 1-2+ swelling to the left knee with some sharp pain with movement. She denies any current injury. She rates her pain a 10 out of 10. Patient has a history of knee pain, smoking, ectopic x2, salpingotomy, cocaine use, marijuana use, amphetamine use. Review of Systems: Review of Systems: Constitutional: Denies fever or chills. [] Eyes: Denies change in visual acuity. [] HENT: Denies nasal congestion or sore throat. [] Respiratory: Denies cough or shortness of breath. [] Cardiovascular: Denies chest pain or +left knee edema. [] GI: Denies abdominal pain, nausea, vomiting, bloody stools or diarrhea. [] : Denies dysuria. [] Musculoskeletal: Denies back pain or +left knee joint pain. [] Integument: Denies rash. [] Neurologic: Denies headache, focal weakness or sensory changes. [] Endocrine: Denies polyuria or polydipsia. [] Lymphatic: Denies swollen glands. [] Psychiatric: Denies depression or anxiety. [] Heart Score: C/O Chest Pain: No Current Medications: Current Medications Medications (Trade) Dose Ordered Sig/[facility] Start Time Stop Time Status Last Admin Dose Admin Ketorolac Tromethamine (Toradol Im) 60 mg 1X ONCE 05/04/21 13:30 05/04/21 13:31 DC 05/04/21 13:30 60 MG Allergies: Allergies: Allergies Coded Allergies Type Severity Reaction Last Updated Verified No Known Drug Allergies 05/04/21 No Physical Exam: PE: Constitutional: Well developed, well nourished, no acute distress, non-toxic appearance. [] HENT: Normocephalic, atraumatic, bilateral external ears normal, oropharynx moist, no oral exudates, nose normal. [] Eyes: PERRLA, EOMI, conjunctiva normal, no discharge. [] Neck: Normal range of motion, no tenderness, supple, no stridor. [] Cardiovascular:Heart rate regular rhythm, no murmur [] Lungs & Thorax: Bilateral breath sounds clear to auscultation [] Abdomen: Bowel sounds normal, soft, no tenderness, no masses, no pulsatile masses. [] Skin: Warm, dry, no erythema, no rash. [] Back: No tenderness, no CVA tenderness. [] Extremities: No tenderness, no cyanosis, no clubbing, ROM intact, Left knee 2+ edema. [] Neurologic: Alert and oriented X 3, normal motor function, normal sensory functi on, no focal deficits noted. [] Psychologic: Affect normal, judgement normal, mood normal. [] Current Patient Data: Labs: Laboratory Tests Test 05/04/21 12:11 05/04/21 12:13 05/04/21 12:18 Urine Opiates Screen Neg (NEG) Urine Methadone Screen Neg (NEG) Urine Barbiturates Neg (NEG) Urine Phencyclidine Screen Neg (NEG) Urine Amphetamine/Methamphetamine Pos (NEG) Urine Benzodiazepines Screen Neg (NEG) Urine Cocaine Screen Pos (NEG) Urine Cannabinoids Screen Pos (NEG) Urine Ethyl Alcohol Neg (NEG) White Blood Count 9.3 x10^3/uL (4.0-11.0) Red Blood Count 4.63 x10^6/uL (3.50-5.40) Hemoglobin 12.6 g/dL (12.0-15.5) Hematocrit 38.9 % (36.0-47.0) Mean Corpuscular Volume 84 fL (79-100) Mean Corpuscular Hemoglobin 27 pg (25-35) Mean Corpuscular Hemoglobin Concent 33 g/dL (31-37) Red Cell Distribution Width 14.2 % (11.5-14.5) Platelet Count 324 x10^3/uL (140-400) Neutrophils (%) (Auto) 79 % (31-73) H Lymphocytes (%) (Auto) 13 % (24-48) L Monocytes (%) (Auto) 5 % (0-9) Eosinophils (%) (Auto) 3 % (0-3) Basophils (%) (Auto) 0 % (0-3) Neutrophils # (Auto) 7.3 x10^3/uL (1.8-7.7) Lymphocytes # (Auto) 1.2 x10^3/uL (1.0-4.8) Monocytes # (Auto) 0.5 x10^3/uL (0.0-1.1) Eosinophils # (Auto) 0.3 x10^3/uL (0.0-0.7) Basophils # (Auto) 0.0 x10^3/uL (0.0-0.2) Sodium Level 142 mmol/L (136-145) Potassium Level 4.0 mmol/L (3.5-5.1) Chloride Level 105 mmol/L (98-107) Carbon Dioxide Level 28 mmol/L (21-32) Anion Gap 9 (6-14) Blood Urea Nitrogen 13 mg/dL (7-20) Creatinine 0.7 mg/dL (0.6-1.0) Estimated GFR (Cockcroft-Gault) 119.7 BUN/Creatinine Ratio 19 (6-20) Glucose Level 100 mg/dL (70-99) H Uric Acid 3.7 mg/dL (2.6-6.0) Calcium Level 8.6 mg/dL (8.5-10.1) Total Bilirubin 0.3 mg/dL (0.2-1.0) Aspartate Amino Transferase (AST) 25 U/L (15-37) Alanine Aminotransferase (ALT) 27 U/L (14-59) Alkaline Phosphatase 67 U/L (46-116) Total Protein 7.4 g/dL (6.4-8.2) Albumin 3.2 g/dL (3.4-5.0) L Albumin/Globulin Ratio 0.8 (1.0-1.7) L POC Urine HCG, Qualitative Hcg negative (Negative) Laboratory Tests 05/04/21 12:13 Laboratory Tests 05/04/21 12:13 Vital Signs: Vital Signs Date Time Temp Pulse Resp B/P (MAP) Pulse Ox O2 Delivery O2 Flow Rate FiO2 05/04/21 13:51 63 16 119/71 (87) 100 Room Air 05/04/21 11:10 97.9 97.9 EKG: EKG: [] Radiology/Procedures: Radiology/Procedures: [] Impression: [facility] [address] [place] [address] IMAGING REPORT Signed PATIENT: DEE BENITES ACCOUNT: [id number] : 1990 LOCATION: ER AGE: 30 SEX: F EXAM STATUS: PRE ER ORD. PHYSICIAN: ERNA TONEY APRN REASON: swelling, pain PROCEDURE: KNEE LEFT 4V XR KNEE _4 VIEWS WITH PATELLA_LT DATE: 05/04/2021 12:05 PM INDICATION: Reason: swelling, pain / Spl. Instructions: / History: COMPARISON: None. FINDINGS: Bones: There is no evidence of acute fracture or dislocation. Joints: The joint spaces are normal. There is no joint effusion. Miscellaneous: None. IMPRESSION: No evidence of acute fracture or malalignment. Electronically signed by: Jonn Evans DO (05/04/2021 12:49 PM) [id number] DICTATED and SIGNED BY: JONN EVANS DO DATE: 05/04/21 [id number] [facility] [address] [place] [address] IMAGING REPORT Signed PATIENT: DEE BENITES ACCOUNT: [id number] : 1990 LOCATION: ER AGE: 30 SEX: F EXAM STATUS: PRE ER ORD. PHYSICIAN: ERNA TONEY APRN REASON: swelling, pain PROCEDURE: VENOUS LOWER EXTREMITY LEFT EXAMINATION: US DPLX VENOUS EXTREMITY LOWER LT (LOWER EXTREMITY VENOUS ULTRASOUND) CLINICAL HISTORY: Left lower extremity swelling, pain TECHNIQUE: Sonographic grayscale images obtained of the left lower extremity deep venous system with color flow Doppler, compression, and augmentation techniques as indicated. Images obtained and stored in a permanent archive. COMPARISON: None FINDINGS: No evidence of absent flow or incompressibility within the common femoral vein, femoral vein, or popliteal vein. Visualized calf veins appear patent on limited evaluation. IMPRESSION: No evidence of left lower extremity DVT. Electronically signed by: Jules Bonilla DO (05/04/2021 12:09 PM) [facility] DICTATED and SIGNED BY: JULES BONILLA DO DATE: 05/04/21 [id number] Course & Med Decision Making: Course & Med Decision Making Pertinent Labs and Imaging studies reviewed. (See chart for details) See HPI. Alert and oriented x4. Ambulatory with steady gait. Skin pink warm dry. Patient does have full range of motion of the knee joint. There is 1-2+ swelling to the knee but there is no tenderness or heat. There does look to be some slight redness to the knee. For this reason I will give her Keflex antibiotic. She does not have a PCP and has poor follow-up. blood work is unremarkable. She is afebrile. Pedal pulse strong and present. Cap refill less than 2 seconds. No other swelling to the extremity. Sensations intact. Neurologically intact. Patient is given Toradol IM. [] Dragon Disclaimer: Brett Disclaimer: This electronic medical record was generated, in whole or in part, using a voice recognition dictation system. Departure Departure Impression: Primary Impression: Knee pain, right Qualified Codes: M25.561 - Pain in right knee Additional Impressions: Cocaine abuse Amphetamine abuse Marijuana abuse Disposition: HOME / SELF CARE / HOMELESS Condition: STABLE Referrals: NO PCP (PCP) RUBA JHA Jr. DO Patient Instructions: Knee Pain Additional Instructions: Follow-up with primary care provider or the orthopedic I have referred you to. Take ibuprofen and try to rest and stay off the knee. Use ice to help with pain and swelling. Drink plenty of fluids. If you begin running a fever or there is tenderness or severe swelling return emergency room. Scripts Ibuprofen (IBUPROFEN) 600 Mg Tablet 600 MG PO PRN Q6HRS PRN for INFLAMMATION, #25 TAB Prov: ERNA TONEY SPLITTING MACHINE OPERATOR 05/04/21 Cephalexin (KEFLEX) 500 Mg Capsule 1 CAP PO QID, #40 CAP Prov: ERNA TONEY SPLITTING MACHINE OPERATOR 05/04/21 ERNA TONEY SPLITTING MACHINE OPERATOR May 04, 2021 14:03
== END 2021-05-04 14:06 | disposition home or self-care (01) ==
LOC: ER 11:10
DX: M25.561 Pain in right knee (principal); F14.10 Cocaine abuse, uncomplicated; F15.10 Other stimulant abuse, uncomplicated; F12.10 Cannabis abuse, uncomplicated; F17.200 Nicotine dependence, unspecified, uncomplicated
CPT/HCPCS: 36415; 73564; 80053; 80307; 81025; 84550; 85025; 93971; 96372; 99285; J1885